=== PATIENT | female | born 1940 | race Hispanic/Latino ===

== ENCOUNTER → 2017-07-22 | Outpatient (CLI) | payer OTHER, MEDICARE ==
[~2017-07-22] MED LIST: AMLO5TAB2 PO; ATOR10 PO; BUDE10.2 IH; DONE10TA36 PO; DULO60CA63 PO; ESOM40CA PO; INSU100V12 SQ; PRED10TA23 PO; PREG75 PO; SITA1TAB6 PO; TIZA4TAB4 PO; VALS1TAB81 PO
== END ==
LOC: RAH 08:30
PROVIDERS: ATTEND Internal Medicine
DX: R10.9 Unspecified abdominal pain (principal)
CPT/HCPCS: 76700

== ENCOUNTER 2018-05-30 14:41 | Emergency (ER) | payer OTHER, MEDICARE ==
[~2018-05-30 14:41] MED LIST changes: -AMLO5TAB2 PO; +AMLO5TAB7 PO
[2018-05-30 15:23] LABS: BASOPHILS % (AUTO) 0.1 % (0.0-5.0); HEMATOCRIT 32.3 % (36-48); LYMPHOCYTES % (AUTO) 4.3 % (21.0-51.0); MEAN CORPUSCULAR HEMOGLOBIN 29.5 pg (27.0-33.0); MEAN CORPUSCULAR HGB CONC 32.1 g/dL (32.0-36.0); MEAN CORPUSCULAR VOLUME 91.7 fL (79-99); MONOCYTES % (AUTO) 1.1 % (3.0-13.0); NEUTROPHILS % (AUTO) 94.5 % (40.0-77.0); PLATELET COUNT (AUTO) 266 K/uL (130-400); RED BLOOD CELL COUNT(AUTO) 3.53 MIL/uL (4.00-5.50); RED CELL DISTRIBUTION WIDTH 16.7 % (11.0-15.5); WHITE BLOOD COUNT (AUTO) 6.3 K/uL (4.8-10.8)
[2018-05-30 15:35] LABS: CREATININE 5.5 mg/dL (0.5-1.5); POTASSIUM 3.7 mmol/L (3.5-5.1)
[2018-05-30 15:39] LABS: ALBUMIN 2.8 g/dL (3.5-5.0); BILIRUBIN,TOTAL 0.5 mg/dL (0.2-1.0); TOTAL PROTEIN, SERUM 5.8 g/dL (6.0-8.3)
[2018-05-30 15:56] LABS: B-TYPE NATRIURETIC PEPTIDE 3810 pg/mL (0-100)
[2018-05-30] MEDS ORDERED: LABETALOL 20 MG/4 ML DISP.SYRIN IV ONE (17:08)
[2018-05-30] MEDS ORDERED: INSULIN HUMULIN R 100 UNIT/ML 3ML ONE (17:59)
[2018-05-30] MEDS ORDERED: HYDRALAZINE HCL 20 MG/ML VIAL ONE ×3 (18:32→19:19)
== END 2018-05-30 20:27 | disposition home or self-care (01) ==
LOC: EDH 14:41
DX: I12.9 Hypertensive chronic kidney disease with stage 1 through stage 4 chronic kidney disease, or unspecified chronic kidney disease (principal); E11.22 Type 2 diabetes mellitus with diabetic chronic kidney disease; N18.9 Chronic kidney disease, unspecified; Z98.890 Other specified postprocedural states
CPT/HCPCS: 36415; 71045; 80053; 82550; 82948; 83880; 84484 ×2; 85025; 93005 ×2; 93970; 96374; 96375; 96376; 99284; J0360 ×2; J1815

== ENCOUNTER 2018-08-02 22:50 | Inpatient (IN) | payer OTHER, MEDICARE ==
[~2018-08-02] VITALS: Ht 152.4 cm; Wt 49.7 kg
[~2018-08-02 22:50] MED LIST changes: -AMLO5TAB7 PO; +AMLO5TAB9 PO
[2018-08-02 23:19] LABS: BASOPHILS % (AUTO) 0.6 % (0.0-5.0); EOSINOPHILS % (AUTO) 0.5 % (0.0-8.0); LYMPHOCYTES % (AUTO) 10.8 % (21.0-51.0); MEAN CORPUSCULAR HEMOGLOBIN 30.2 pg (27.0-33.0); MEAN CORPUSCULAR HGB CONC 32.9 g/dL (32.0-36.0); MEAN CORPUSCULAR VOLUME 91.8 fL (79-99); MONOCYTES % (AUTO) 6.6 % (3.0-13.0); NEUTROPHILS % (AUTO) 81.5 % (40.0-77.0); PLATELET COUNT (AUTO) 227 K/uL (130-400); RED BLOOD CELL COUNT(AUTO) 4.14 MIL/uL (4.00-5.50); RED CELL DISTRIBUTION WIDTH 14.4 % (11.0-15.5); WHITE BLOOD COUNT (AUTO) 6.6 K/uL (4.8-10.8)
[2018-08-02 23:33] LABS: INR 0.94 (0.85-1.15); PARTIAL THROMBOPLASTIN TIME 27.5 SEC (26.3-35.5); PROTHROMBIN TIME 9.9 SEC (9.6-11.6)
[2018-08-02 23:38] LABS: ALBUMIN 3.6 g/dL (3.5-5.0); BILIRUBIN,TOTAL 0.7 mg/dL (0.2-1.0); CREATININE 7.2 mg/dL (0.5-1.5); TOTAL PROTEIN, SERUM 7.1 g/dL (6.0-8.3)
[2018-08-02] MEDS ORDERED: HYDRALAZINE HCL 20 MG/ML VIAL ONE (23:55)
[2018-08-03] VITALS (37 sets, daily range): BP systolic 130–206; BP diastolic 71–131
[2018-08-03] MEDS ORDERED: HYDRALAZINE HCL 20 MG/ML VIAL ONE (00:45)
[2018-08-03] MEDS ORDERED: NITROGLYCERIN 1GM/1 INCH PACKET TD ONE (01:02)
[2018-08-03] MEDS ORDERED: NITROGLYCERIN 50 MG/D5% WATER 1 BOT ONE (01:22)
[2018-08-03 01:24] LABS: BILIRUBIN,URINE Negative (NEGATIVE); COLOR,URINE Yellow (YELLOW); GLUCOSE, URINE (UA) TRACE mg/dL (NEGATIVE); KETONES,URINE Negative (NEGATIVE); LEUKOCYTE ESTERASE ,URINE Negative (NEGATIVE); NITRATE,URINE Negative (NEGATIVE); OCCULT BLOOD,URINE Negative (NEGATIVE); PROTEIN,URINE >=1000 (NEGATIVE); UROBILINOGEN,URINE 0.2 mg/dL (0.2-1.0)
[2018-08-03 01:26] LABS: APPEARANCE,URINE CLEAR (CLEAR)
[2018-08-03 01:37] LABS: AMPHET/METH SCREEN,URINE NEGATIVE (NEGATIVE); BARBITURATE SCREEN, URINE NEGATIVE (NEGATIVE); BENZODIAZEPINES SCREEN,URINE NEGATIVE (NEGATIVE); CANNABINOID SCREEN,URINE NEGATIVE (NEGATIVE); COCAINE SCREEN,URINE NEGATIVE (NEGATIVE); OPIATE SCREEN,URINE NEGATIVE (NEGATIVE); PHENCYCLIDINE SCREEN,URINE NEGATIVE (NEGATIVE)
[2018-08-03 01:48] LABS: AMORPHOUS SEDIMENT,UR Moderate /LPF (None Seen); BACTERIA,URINE Few /HPF (None Seen); RBC,URINE 0-1 /HPF (0-1); SQUAMOUS EPITHELIAL CELL,UR 0-2 /HPF (0-2); WBC,URINE 0-1 /HPF (0-1)
[2018-08-03] MEDS ORDERED: POTASSIUM CHLORIDE 10% ELIXIR 20 MEQ/15 ML UDCUP ONE (02:05)
[2018-08-03] MEDS ORDERED: ASPIRIN 325 MG TABLET ONE (02:48)
--- NOTE | 2018-08-03 03:05 | NUR ---
ADMISSION RECEIVED FROM ER BY STRETCHER. MOVED TO ICU BED AND PLACED ON CONCRETE WALL GRINDER OPERATOR,NIBP, PULSE OXIMETER. CALL LIGHT EXPLAINED AND GIVEN TO HER. DENIES PAIN. ASSESSMENT COMPLETED SEE FLOW SHEET. NITROGLYCERINE DRIP INFUSING FROM ER AT [facility] FOR BP CONTROL.
--- NOTE | 2018-08-03 03:15 | NUR ---
FAMILY MEMBER IN AT BEDSIDE NOW. QUESTIONS ANSWERED. ADMISSION PAPER WORK COMPLETED. INSTRUCTED TO CALL FOR WANTS OR NEEDS. DAUGHTER TO BRING HOME MEDICATIONS IN AM. TITRATING NITROGLYCERINE DRIP FOR BP CONTROL.
[2018-08-03] MEDS ORDERED: DEXTROSE 50%-WATER 50 ML DISP.SYRIN IV PRN (03:45)
[2018-08-03] MEDS ORDERED: ONDANSETRON HCL MDV 20ML 2 MG/ML VIAL IVP PRN (03:45)
[2018-08-03] MEDS ORDERED: GLUCAGON 1MG KIT 1 MG ML IM PRN (03:45)
[2018-08-03] MEDS ORDERED: ACETAMINOPHEN 325 MG TAB PO PRN ×2 (03:45→09:30)
[2018-08-03 07:18] LABS: CREATININE 7.1 mg/dL (0.5-1.5)
[2018-08-03] MEDS ORDERED: HYDR100T27 PO (07:54)
[2018-08-03] MEDS ORDERED: LINA145C PO (07:54)
[2018-08-03] MEDS ORDERED: [UNRECOGNIZED DRUG - CODE] SQ (07:54)
[2018-08-03] MEDS ORDERED: RANI150T7 PO (07:54)
[2018-08-03] MEDS ORDERED: METO50 PO (07:54)
[2018-08-03] MEDS ORDERED: METO5TAB7 PO (07:54)
[2018-08-03] MEDS ORDERED: RANO500T3 PO (07:54)
[2018-08-03] MEDS ORDERED: CALC667C10 PO (07:54)
[2018-08-03] MEDS ORDERED: ISOS60TA4 PO (07:54)
[2018-08-03] MEDS ORDERED: INSU100I21 SQ (07:54)
[2018-08-03] MEDS ORDERED: PATI8.4P PO (07:54)
[2018-08-03] MEDS ORDERED: FURO40TA5 PO (07:54)
[2018-08-03] MEDS ORDERED: DULO30CA51 PO (07:54)
[2018-08-03] MEDS: METOPROLOL TARTRATE 50 MG TAB PO SCH ×2 (08:42→20:53)
[2018-08-03] MEDS: HYDRALAZINE HCL 25 MG TABLET PO SCH ×2 (08:42→20:53)
[2018-08-03] MEDS ORDERED: AMLODIPINE BESYLATE 5 MG TAB PO SCH (09:00)
[2018-08-03] MEDS ORDERED: LACTULOSE 20 GM/30 ML UDCUP PO PRN (09:30)
[2018-08-03] MEDS ORDERED: ONDANSETRON HCL 4 MG/2 ML VIAL IV PRN (09:30)
[2018-08-03] MEDS ORDERED: NITR0.4T50 SL (10:47)
[2018-08-03] MEDS ORDERED: FLUT1AER IH (10:47)
[2018-08-03] MEDS ORDERED: OLOP2.5D5 OP (10:48)
[2018-08-03] MEDS ORDERED: SODIUM CHLORIDE 0.9% 1000ML 1,000 ML IV SCH (11:30)
[2018-08-03] MEDS ORDERED: SODIUM CHLORIDE 0.9% 1000ML 1,000 ML IV ONE (11:32)
[2018-08-03] MEDS: CALCIUM ACETATE 667 MG CAPSULE PO SCH ×2 (12:00→17:00)
--- NOTE | 2018-08-03 12:00 | NUR ---
POOR APPETITE: KAILASH HELD PT REFUSED LUNCH - DAUGHTER STATES SHE HAS HAD A PORR APPETITE FOR WEEKS.
[2018-08-03] MEDS: ALBUTEROL SULFATE 0.083% 2.5 MG/3 ML INH IH SCH ×3 (12:12→23:33)
--- NOTE | 2018-08-03 17:11 | NUR ---
MELISSA: DAUGHTER, JUAN SALO IS THE PRIMARY DESIGNEE FOLLOWED BY RACHELLE LEONG, DAUGHTER, THE SECONDARY DESIGNEE. COPY TO CHART.
--- NOTE | 2018-08-03 17:43 | NUR ---
SPENCERSLO HELD - REFUSES TO EAT
[2018-08-03] MEDS: BUDESONIDE 0.5 MG/2 ML INH IH SCH (19:02)
--- NOTE | 2018-08-03 20:30 | NUR ---
ASSESSMENT AWAKE. RESTING IN BED. FAMILY MEMBER AT BEDSIDE. QUESTIONS ANSWERED. ASSESSMENT COMPLETED SEE FLOW SHEET. INSTRUCTED TO CALL FOR WANTS OR NEEDS. Addendum: 08/03/18 at 2204 by YAKELIN TOVAR RN RN Amended: Links added.
[2018-08-03] MEDS: RANOLAZINE 500 MG TAB.SR.12H PO SCH (20:52)
[2018-08-03] MEDS: DULOXETINE HCL 30 MG CAP PO SCH (20:52)
[2018-08-03] MEDS: AMLODIPINE BESYLATE 5 MG TAB PO SCH (20:53)
[2018-08-04] VITALS (15 sets, daily range): BP systolic 132–163; BP diastolic 50–80
[2018-08-04 03:48] LABS: HEMATOCRIT 33.8 % (36-48); MEAN CORPUSCULAR HEMOGLOBIN 30.6 pg (27.0-33.0); MEAN CORPUSCULAR HGB CONC 33.3 g/dL (32.0-36.0); MEAN CORPUSCULAR VOLUME 91.8 fL (79-99); PLATELET COUNT (AUTO) 187 K/uL (130-400); RED BLOOD CELL COUNT(AUTO) 3.68 MIL/uL (4.00-5.50); RED CELL DISTRIBUTION WIDTH 14.4 % (11.0-15.5); WHITE BLOOD COUNT (AUTO) 5.1 K/uL (4.8-10.8)
[2018-08-04 03:54] LABS: INR 0.97 (0.85-1.15); PROTHROMBIN TIME 10.2 SEC (9.6-11.6)
[2018-08-04 03:58] LABS: CREATININE 7.2 mg/dL (0.5-1.5); PHOSPHORUS 4.9 mg/dL (2.5-4.9)
[2018-08-04 04:01] LABS: LYMPHOCYTES % (MANUAL) 19 % (22-44); MAN.DIFF COMMENT-IMPRESSION MANUAL DIFFERENTIAL; MONOCYTES % (MANUAL) 5 % (2-9); SEGMENTED NEUTROPHILS % 76 % (40-70)
[2018-08-04 04:04] LABS: POTASSIUM 2.8 mmol/L (3.5-5.1)
[2018-08-04] MEDS: BUDESONIDE 0.5 MG/2 ML INH IH SCH ×2 (06:01→19:08)
[2018-08-04] MEDS: ALBUTEROL SULFATE 0.083% 2.5 MG/3 ML INH IH SCH ×4 (06:01→23:35)
[2018-08-04] MEDS: CALCIUM ACETATE 667 MG CAPSULE PO SCH ×3 (08:21→16:43)
[2018-08-04] MEDS: AMLODIPINE BESYLATE 5 MG TAB PO SCH ×2 (08:21→21:02)
[2018-08-04] MEDS: ISOSORBIDE MONO 60 MG TAB.SR PO SCH (08:22)
[2018-08-04] MEDS ORDERED: HYDR100T27 PO (08:22)
[2018-08-04] MEDS ORDERED: LINA145C PO (08:22)
[2018-08-04] MEDS ORDERED: FLUT1BLS IH (08:22)
[2018-08-04] MEDS ORDERED: BUSP10TA3 PO (08:23)
[2018-08-04] MEDS ORDERED: LORA10TA7 PO (08:24)
[2018-08-04] MEDS ORDERED: CLON0.1T PO (08:25)
[2018-08-04] MEDS ORDERED: ALBU90AE IH (08:27)
[2018-08-04] MEDS ORDERED: FERR210T PO (08:30)
[2018-08-04] MEDS: METOPROLOL TARTRATE 50 MG TAB PO SCH ×2 (08:31→21:02)
[2018-08-04] MEDS: RANOLAZINE 500 MG TAB.SR.12H PO SCH ×2 (08:32→21:02)
[2018-08-04] MEDS: PANTOPRAZOLE SODIUM 40 MG TABLET.DR PO SCH (08:32)
[2018-08-04] MEDS: HYDRALAZINE HCL 25 MG TABLET PO SCH ×2 (08:32→21:01)
[2018-08-04] MEDS ORDERED: INSU100I29 SQ (08:33)
[2018-08-04] MEDS: FUROSEMIDE 40 MG TABLET PO SCH (08:33)
[2018-08-04] MEDS ORDERED: ALBU2.5V2 IH (08:35)
[2018-08-04] MEDS ORDERED: AEC81 PO (08:36)
[2018-08-04] MEDS ORDERED: CHOL100046 PO (08:36)
[2018-08-04] MEDS ORDERED: FOLI1TAB61 PO (08:37)
[2018-08-04] MEDS ORDERED: KETO120S7 TP (08:38)
[2018-08-04] MEDS ORDERED: TRIA15CR48 TP (08:39)
[2018-08-04] MEDS: POTASSIUM CHLORIDE 20 MEQ ERTAB PO SCH ×2 (08:47→12:15)
--- NOTE | 2018-08-04 09:00 | NUR ---
DR. NEWTON HERE AND ORDERS NOTED PT TO BE TRANSFERRED TO PCCU WHEN ROOM BECOMES AVAILABLE.
--- NOTE | 2018-08-04 10:45 | NUR ---
PT TRANSFERRED TO ROOM 223 FROM ICU. PT IN STABLE CONDITION. WILL CONT TO MONITOR.
--- NOTE | 2018-08-04 10:56 | NUR ---
REPORT GIVEN TO SAVANAH SAMUEL RN AND PT TO BE TAKEN TO ROOM 223.
--- NOTE | 2018-08-04 12:00 | NUR ---
SPOKE WITH DR. NEWTON REGARDING ADVANCE DIRECTIVES. INFORMED HER THAT POWER OF BEAM CARRIER HAULER PUSHER FOR PATIENT SIGNED DNR FORM. MD IS IN AGREEMENT, ORDER RECEIVED FOR DNR STATUS.
--- NOTE | 2018-08-04 15:23 | NUR ---
Nutrition intervention: Nutrition notification for poor appetite. Pt with PMH of dementia, ESRD refusing dialysis. Pt's daughter at bedside states pt with poor appetite and would like a list of foods that pt is able to eat appropriate for renal dysfunction. LUX provided daughter with a suggested grocery list to take home for assistance when grocery shopping for pt. LBM 08/01-reported by daughter. Recommendations: Multivitamin to encourage increase appetite. Laxative to encourage BM. Addendum: 08/04/18 at [address] Amended: Links added.
--- NOTE | 2018-08-04 18:30 | NUR ---
LARA CATH [address] [facility] POLICY. CLEAR YELLOW URINE NOTED. SPECIMEN SEND ORDERED.
--- NOTE | 2018-08-04 18:46 | NUR ---
cm note met with patient and spouse and daughter kevin who states she is POA, pt resides athome with spouse, pt has 24hrs provider per week. pt uses w/c and walker at home, and has been getting weaker, discussed options for snf level of care, but daughter states they are planning for pt to go home with one of the 2 other daughters to stay with them.do not want snf at this time. Addendum: 08/04/18 at 1852 by NENA CASEY CM Amended: Links added.
[2018-08-04 19:02] LABS: BILIRUBIN,URINE Negative (NEGATIVE); COLOR,URINE Yellow (YELLOW); GLUCOSE, URINE (UA) 250 mg/dL (NEGATIVE); KETONES,URINE Negative (NEGATIVE); LEUKOCYTE ESTERASE ,URINE Negative (NEGATIVE); NITRATE,URINE Negative (NEGATIVE); OCCULT BLOOD,URINE Negative (NEGATIVE); PROTEIN,URINE >=1000 (NEGATIVE); UROBILINOGEN,URINE 0.2 mg/dL (0.2-1.0)
[2018-08-04 19:16] LABS: APPEARANCE,URINE CLEAR (CLEAR)
[2018-08-04 20:15] LABS: RBC,URINE 0-1 /HPF (0-1); WBC,URINE 0-1 /HPF (0-1)
[2018-08-04 20:16] LABS: BACTERIA,URINE Few /HPF (None Seen)
[2018-08-04 20:19] LABS: SQUAMOUS EPITHELIAL CELL,UR Rare /HPF (0-2)
--- NOTE | 2018-08-04 21:00 | NUR ---
PT IN BED, FAMILY AT BEDSIDE. NO PAIN STATED. AAOX1. PERRLA.SLUGGISH. PT IS VERY WEAK. REQUIRES ASSISTANCE TO REPOSITION. ABLE TO TAKE MEDICATIONS CRUSHED WITH APPLESAUCE. TOLERATED WELL. LAAR CATHETER. PATENT. IV PATENT. NOT ABLE TO AMBULATE. GBW. PT HAS NOT HAD A BM IN A FEW DAYS. HAD XLARGE BM TODAY. HARD. PT FELT EXHAUSTED AFTER BM. STATED FEELING TIRED SINCE THEN.
[2018-08-04] MEDS: DULOXETINE HCL 30 MG CAP PO SCH (21:02)
--- NOTE | 2018-08-04 23:30 | NUR ---
PT STATED PAIN TO GENERAL BODY AND NAUSEA. TYLENOL AND ZOFRAN PRN WILL BE GIVEN. FAMILY AT BEDSIDE AWARE. WARM PACKS PROVIDED TO MINIMIZE LEG PAIN.
[2018-08-04] MEDS: ACETAMINOPHEN 325 MG TAB PO PRN (23:37)
[2018-08-05 03:55] VITALS: BP 110/60
[2018-08-05 04:10] LABS: HEMATOCRIT 30.5 % (36-48); MEAN CORPUSCULAR HEMOGLOBIN 30.8 pg (27.0-33.0); MEAN CORPUSCULAR HGB CONC 33.8 g/dL (32.0-36.0); MEAN CORPUSCULAR VOLUME 91.2 fL (79-99); NUCLEATED RED BLOOD CELLS 0.1 % (0.0-0.19); PLATELET COUNT (AUTO) 142 K/uL (130-400); RED BLOOD CELL COUNT(AUTO) 3.34 MIL/uL (4.00-5.50); RED CELL DISTRIBUTION WIDTH 14.5 % (11.0-15.5); WHITE BLOOD COUNT (AUTO) 5.3 K/uL (4.8-10.8)
[2018-08-05 04:38] LABS: ALBUMIN 2.8 g/dL (3.5-5.0); BILIRUBIN,TOTAL 0.6 mg/dL (0.2-1.0); CREATININE 7.6 mg/dL (0.5-1.5); MAGNESIUM 2.3 mg/dL (1.80-2.40); POTASSIUM 3.5 mmol/L (3.5-5.1); THYROID STIMULATING HORMONE 3.3 uIU/mL (0.36-3.74); TOTAL PROTEIN, SERUM 5.8 g/dL (6.0-8.3); URIC ACID 6.5 mg/dL (2.6-7.2)
[2018-08-05] MEDS: BUDESONIDE 0.5 MG/2 ML INH IH SCH ×2 (05:42→18:57)
[2018-08-05] MEDS: ALBUTEROL SULFATE 0.083% 2.5 MG/3 ML INH IH SCH ×4 (05:42→23:15)
[2018-08-05 07:47] VITALS: BP 143/65
[2018-08-05] MEDS: POTASSIUM CHLORIDE 20 MEQ ERTAB PO SCH ×2 (08:04→10:30)
[2018-08-05] MEDS ORDERED: EPOETIN ALFA 10,000 UNIT/ML VIAL SQ SCH (09:00)
[2018-08-05] MEDS: HYDRALAZINE HCL 25 MG TABLET PO SCH ×2 (09:02→21:07)
[2018-08-05] MEDS: METOPROLOL TARTRATE 50 MG TAB PO SCH ×2 (09:02→21:07)
[2018-08-05] MEDS: ISOSORBIDE MONO 60 MG TAB.SR PO SCH (09:03)
[2018-08-05] MEDS: PANTOPRAZOLE SODIUM 40 MG TABLET.DR PO SCH (09:03)
[2018-08-05] MEDS: RANOLAZINE 500 MG TAB.SR.12H PO SCH ×2 (09:03→21:07)
[2018-08-05] MEDS: FUROSEMIDE 40 MG TABLET PO SCH (09:03)
[2018-08-05] MEDS: AMLODIPINE BESYLATE 5 MG TAB PO SCH ×2 (09:03→21:07)
[2018-08-05] MEDS: CALCIUM ACETATE 667 MG CAPSULE PO SCH ×3 (09:03→17:45)
--- NOTE | 2018-08-05 09:15 | NUR ---
DR. ESPINAL IN ROOM SPEAKING WITH PT.'S DAUGHTERS AT BEDSIDE AND ANSWERING QUESTIONS RE:HD TREATMENT OPTION.
--- NOTE | 2018-08-05 09:54 | NUR ---
OOH DNR/PLAN SPOKE TO DR. STACIA NEWTON WHO STATES WILL BE FILING APS REPORT FROM HER OFFICE ON PATIENT'S SPOUSE. STATES PATIENT'S CHILDREN FEEL HE IS ABUSING PATIENT. DR. NEWTON SIGNED OOH DNR, PENDING PATIENT'S MPOA TO SIGN. UPDATED SS ON PENDING OOH DNR, PENDING ASSISTANCE. DR. ESPINAL SPOKE TO PATIENT'S FAMILY RE: HD PER THEIR REQUEST. FAMILY STILL INDECISIVE. EDUCATION PRINTOUTS FOR HEMODIALYSIS HAVE BEEN PROVIDED TO THE FAMILY. CM TO CONTINUE TO FOLLOW. CD
[2018-08-05 11:22] VITALS: BP 115/68
[2018-08-05 16:04] VITALS: BP 137/62
[2018-08-05 19:57] VITALS: BP 151/88
--- NOTE | 2018-08-05 21:00 | NUR ---
PT IN BED, FAMILY AT BEDSIDE. AAOX1. PERRLA.SLUGGISH. PT IS VERY WEAK. REQUIRES ASSISTANCE TO REPOSITION. ABLE TO TAKE MEDICATIONS CRUSHED WITH APPLESAUCE. TOLERATED WELL. LARA CATHETER. PATENT. IV PATENT. NOT ABLE TO AMBULATE. GBW. STATED FEELING ITCHY IN HER SKIN AND REQUESTED CREAM. APPLIED CREAM TO UPPER EXTREMITIES. NOTED TO BE MORE AWAKE THAN YESTERDAY, BUT IS NOT ABLE TO COMMUNICATE EFFECTIVELY. AAOX1-2. MUST BE REDIRECTED AND REORIENTED FREQUENTLY.
[2018-08-05] MEDS: DULOXETINE HCL 30 MG CAP PO SCH (21:07)
[2018-08-05] MEDS: INSULIN GLARGINE 100 UNITS/ML 10 ML VIAL SQ SCH (22:15)
[2018-08-06] VITALS (8 sets, daily range): BP systolic 92–153; BP diastolic 38–64
[2018-08-06 04:04] LABS: HEMATOCRIT 31.4 % (36-48); MEAN CORPUSCULAR HEMOGLOBIN 30.5 pg (27.0-33.0); MEAN CORPUSCULAR HGB CONC 33.2 g/dL (32.0-36.0); MEAN CORPUSCULAR VOLUME 92.1 fL (79-99); PLATELET COUNT (AUTO) 148 K/uL (130-400); RED BLOOD CELL COUNT(AUTO) 3.41 MIL/uL (4.00-5.50); RED CELL DISTRIBUTION WIDTH 14.3 % (11.0-15.5); WHITE BLOOD COUNT (AUTO) 4.5 K/uL (4.8-10.8)
[2018-08-06 04:19] LABS: POTASSIUM 3.4 mmol/L (3.5-5.1)
[2018-08-06 04:34] LABS: CREATININE 7.9 mg/dL (0.5-1.5)
[2018-08-06] MEDS: ALBUTEROL SULFATE 0.083% 2.5 MG/3 ML INH IH SCH ×4 (06:27→23:42)
[2018-08-06] MEDS: BUDESONIDE 0.5 MG/2 ML INH IH SCH ×2 (06:39→20:26)
[2018-08-06] MEDS: POTASSIUM CHLORIDE 20 MEQ ERTAB PO SCH (08:07)
--- NOTE | 2018-08-06 09:02 | NUR ---
OOHDNR Nubia and CLINTON met with pt and daughter Maggie Cornejo to complete OOHDNR. Original given to daughter, copy placed on chart.
[2018-08-06] MEDS: METOPROLOL TARTRATE 50 MG TAB PO SCH ×2 (10:26→21:36)
[2018-08-06] MEDS: RANOLAZINE 500 MG TAB.SR.12H PO SCH ×2 (10:26→21:36)
[2018-08-06] MEDS: FUROSEMIDE 40 MG TABLET PO SCH (10:26)
[2018-08-06] MEDS: PANTOPRAZOLE SODIUM 40 MG TABLET.DR PO SCH (10:27)
[2018-08-06] MEDS: HYDRALAZINE HCL 25 MG TABLET PO SCH ×2 (10:27→21:37)
[2018-08-06] MEDS: AMLODIPINE BESYLATE 5 MG TAB PO SCH ×2 (10:27→21:36)
[2018-08-06] MEDS: ISOSORBIDE MONO 60 MG TAB.SR PO SCH (10:27)
[2018-08-06] MEDS: CALCIUM ACETATE 667 MG CAPSULE PO SCH ×3 (10:33→17:00)
--- NOTE | 2018-08-06 11:49 | NUR ---
DC Plan Spoke to daughter Maggie Cornejo [facility] who states plan remains to home. Dr. Celeste ordered HH for PT. Informed daughter Maggie that [facility] works with [facility] for HH/DME. Daughter signed JORGE and Choice Letter. Faxed face sheet, MD order, progress note, H&P, labs, PT Notes, VS, and MARS to [facility]. CD Addendum: 08/06/18 at 1156 by SALVADOR MCGILL CM Amended: Links added.
[2018-08-06] MEDS: ACETAMINOPHEN 325 MG TAB PO PRN (13:47)
--- NOTE | 2018-08-06 15:38 | NUR ---
DR. Estephania NEWTON SPEAKING WITH PT.'S DAUGHTER/Sharmila.OOsmin VIA TELEPHONE RE:PLAN OF CARE INCLUDING POSSIBLE PALLIATIVE OR HOSPICE CARE. DR. NEWTON SPOKE WITH Tito MCGILL CM AFTER CONVERSATION WITH PLeilaODaniel.
--- NOTE | 2018-08-06 18:54 | NUR ---
F/C REMOVED BY Lisa ISAAC RN. PT. TOLERATED WELL, W/O C/O. CALL LIGHT WITHIN REACH. FAMILY MEMBERS ALLOWED BACK IN ROOM.
[2018-08-06] MEDS: INSULIN GLARGINE 100 UNITS/ML 10 ML VIAL SQ SCH (21:00)
[2018-08-06] MEDS: DULOXETINE HCL 30 MG CAP PO SCH (21:36)
[2018-08-07 03:00] VITALS: BP 137/62
[2018-08-07] MEDS: ALBUTEROL SULFATE 0.083% 2.5 MG/3 ML INH IH SCH ×2 (06:14→11:38)
[2018-08-07] MEDS: BUDESONIDE 0.5 MG/2 ML INH IH SCH (06:25)
[2018-08-07] MEDS: POTASSIUM CHLORIDE 20 MEQ ERTAB PO SCH (07:43)
[2018-08-07 08:11] VITALS: BP 134/63
--- NOTE | 2018-08-07 09:18 | NUR ---
DR. ESPINAL AT NURSE'S STATION. UPDATED DR. ESPINAL ON PT.'S FAMILY'S DECISION FOR NO HD; VERBALIZED UNDERSTANDING.
[2018-08-07] MEDS: AMLODIPINE BESYLATE 5 MG TAB PO SCH (09:55)
[2018-08-07] MEDS: FUROSEMIDE 40 MG TABLET PO SCH (09:55)
[2018-08-07] MEDS: CALCIUM ACETATE 667 MG CAPSULE PO SCH ×3 (09:55→17:00)
[2018-08-07] MEDS: ISOSORBIDE MONO 60 MG TAB.SR PO SCH (09:55)
[2018-08-07] MEDS: PANTOPRAZOLE SODIUM 40 MG TABLET.DR PO SCH (09:56)
[2018-08-07] MEDS: METOPROLOL TARTRATE 50 MG TAB PO SCH (09:56)
[2018-08-07] MEDS: HYDRALAZINE HCL 25 MG TABLET PO SCH (09:56)
[2018-08-07] MEDS: RANOLAZINE 500 MG TAB.SR.12H PO SCH (09:56)
--- NOTE | 2018-08-07 10:24 | NUR ---
dcp: HOME WITH [facility] Nubia met with daughter Maggie Cornejo. Pt is refusing dialysis and family is agreeable to honor her wishes. Sw educated daughter on hospice and family wants to use [facility] since they have relative who works there. [place] daughter [place]. Daughter to take pt home by private car. Nubia spoke to Rosalee at [facility] and faxed pt info to office. Rosalee to meet with family for paper work. OOHdnr on chart Nurse Tej aware of dc plan
[2018-08-07 12:00] VITALS: BP 114/54
--- NOTE | 2018-08-07 12:52 | NUR ---
RECEIVED CALL FROM PERFECTO JIN RN FROM [facility]; REPORT GIVEN REQUESTED. Cindy JIN STATES WILL CALL LATER TODAY WHEN EQUIPMENT HAS BEEN DELIVERED TO PT.'S HOME AND PT. CAN BE TRANSFERRED.
--- NOTE | 2018-08-07 12:58 | NUR ---
DR. Estephania NEWTON IN ROOM SPEAKING WITH PT. AND PT.'S FAMILY MEMBERS AT BEDSIDE.
[2018-08-07] MEDS ORDERED: INSU100I21 SQ (13:15)
--- NOTE | 2018-08-07 13:16 | NUR ---
ASSISTED PT. BACK TO BED FROM CHAIR AT BEDSIDE, PER. PT.'S SON'S REQUEST AND WITH HIS ASSISTANCE. CALL LIGHT WITHIN REACH.
[2018-08-07 16:00] VITALS: BP 131/58
--- NOTE | 2018-08-07 16:25 | NUR ---
RECEIVED CALL FROM Cindy JIN RN, STATES EQUIPMENT HAS BEEN DELIVERED AND PT.'S DAUGHTER WILL AR[place] [facility] METHODS ENGINEER PT. "AT 5, WHEN SHE GETS OUT OF WORK."
--- NOTE | 2018-08-07 17:05 | NUR ---
PT.'S DAUGHTER ARRIVED. DISCHARGE INSTRUCTIONS GIVEN TO PT.'S DAUGHTER. HL REMOVED, CATHETER INTACT.
--- NOTE | 2018-08-07 17:45 | NUR ---
PT. RELUCTANT TO LEAVE HOSPITAL. REFUSING TO GET OOB AND ONTO W/C. PT.'S DAUGHTER ATTEMPTING TO PERSUADE TO LEAVE HOSPITAL. EVENTUALLY PT. AGREES AND PT. ASSISTED TO W/C BY DAUGHTER AND THIS NURSE WELL Casie LEY, PCP. PT. TAKEN TO VEHICLE BY W/C AND ASSISTED INTO CAR. SEATBELT APPLIED.
== END 2018-08-07 18:05 | disposition hospice, home (50) | DRG 637 ==
LOC: EDH 22:50 → EDHIP 08-03 02:15 → 2CH 08-03 02:42 → 2DH 08-04 11:06
PROVIDERS: ADMIT Internal Medicine; ATTEND Internal Medicine
DX: E11.649 Type 2 diabetes mellitus with hypoglycemia without coma (principal); G93.41 Metabolic encephalopathy; E87.1 Hypo-osmolality and hyponatremia; E87.0 Hyperosmolality and hypernatremia; I13.2 Hypertensive heart and chronic kidney disease with heart failure and with stage 5 chronic kidney disease, or end stage renal disease; I16.1 Hypertensive emergency; I50.32 Chronic diastolic (congestive) heart failure; G95.89 Other specified diseases of spinal cord; I16.0 Hypertensive urgency; E11.21 Type 2 diabetes mellitus with diabetic nephropathy; E11.22 Type 2 diabetes mellitus with diabetic chronic kidney disease; E11.3299 Type 2 diabetes mellitus with mild nonproliferative diabetic retinopathy without macular edema, unspecified eye; E11.620 Type 2 diabetes mellitus with diabetic dermatitis; E11.65 Type 2 diabetes mellitus with hyperglycemia; D63.1 Anemia in chronic kidney disease; E11.51 Type 2 diabetes mellitus with diabetic peripheral angiopathy without gangrene; E78.2 Mixed hyperlipidemia; E87.6 Hypokalemia; F03.90 Unspecified dementia, unspecified severity, without behavioral disturbance, psychotic disturbance, mood disturbance, and anxiety; F32.9 Major depressive disorder, single episode, unspecified; I25.119 Atherosclerotic heart disease of native coronary artery with unspecified angina pectoris; J30.9 Allergic rhinitis, unspecified; J44.9 Chronic obstructive pulmonary disease, unspecified; K21.9 Gastro-esophageal reflux disease without esophagitis; M19.90 Unspecified osteoarthritis, unspecified site; N18.6 End stage renal disease; N25.81 Secondary hyperparathyroidism of renal origin; Z66 Do not resuscitate; Z79.4 Long term (current) use of insulin; Z79.51 Long term (current) use of inhaled steroids; Z79.82 Long term (current) use of aspirin; Z79.899 Other long term (current) drug therapy; Z82.0 Family history of epilepsy and other diseases of the nervous system; Z82.3 Family history of stroke; Z82.49 Family history of ischemic heart disease and other diseases of the circulatory system; Z83.3 Family history of diabetes mellitus; F41.9 Anxiety disorder, unspecified
CPT/HCPCS: 36415; 70450; 71045; 76770; 80048; 80053; 80061; 80305; 81001; 82140; 82550; 82948; 83735; 84100; 84443; 84484; 84550; 85025; 85027; 85610; 85730; 93005; 94640; 94664; 97039; 99291; A4344; G0378; J0360; J2405; J3490; J7030